=== PATIENT | male | born 1985 | race Caucasian/White ===

== ENCOUNTER 2017-05-20 15:17 | Observation (INO) ==
[2017-05-20] MEDS ORDERED: *HR* LORazepam 2 MG/ML VIAL IVP ONE (17:13)
[2017-05-20] MEDS ORDERED: Naloxone 0.4 MG/ML INJ IVP ONE (17:24)
[2017-05-20] MEDS ORDERED: Naloxone 0.4 MG/ML INJ ONE (17:25)
[2017-05-20 17:53] LABS: Basophils # 0.1 K/mcL (0.0-0.2); Basophils % 0.7 %; Eosinophils # 0.2 K/mcL (0.0-0.6); Eosinophils % 1.8 %; Hematocrit 44.7 % (37.5-50.1); Hemoglobin 14.4 g/dL (12.9-16.9); Immature Granulocytes % 0.2 % (0-4); Lymphocytes % 36.6 %; Mean Corpuscular HGB Conc 32.2 g/dL (31.6-35.5); Mean Corpuscular Hemoglobin 27.6 pg (28.0-33.3); Mean Corpuscular Volume 85.6 fL (83.0-100.0); Monocytes # 0.5 K/mcL (0.0-1.3); Monocytes % 6.5 %; Neutrophils # 4.4 K/mcL (1.6-8.9); Platelet Count 183 K/mcL (140-400); Red Blood Count 5.22 M/mcL (4.19-5.50); Red Cell Distribution Width 13.4 % (11.5-14.5); Segmented Neutrophils % 54.2 %
[2017-05-20 18:10] LABS: Alanine Aminotransferase 40 Units/L (7-52); Albumin 4.2 g/dL (3.5-5.7); Albumin/Globulin Ratio 1.3 (1.1-2.2); Alkaline Phosphatase 52 Units/L (34-104); Aspartate Amino Transferase 32 Units/L (13-39); BUN/Creatinine Ratio 19 (6-26); Bilirubin,Total 0.5 mg/dL (0.3-1.0); Blood Urea Nitrogen 14 mg/dL (6-20); Carbon Dioxide 26 mEq/L (23-29); Chloride 105 mEq/L (98-107); Globulin 3.3 g/dL (2.4-3.5); Glucose 80 mg/dL (70-105); Osmolality,Calculated 283 (280-300); Potassium 4.2 mEq/L (3.5-5.1); Sodium 137 mEq/L (136-145); Total Protein 7.5 g/dL (6.4-8.9); eGFR For African Americans > 60 (> 60); eGFR For Non-African Americans > 60 (> 60)
[2017-05-20 18:15] LABS: Ethanol < 10 mg/dL (0-10); Salicylate < 5.0 mg/dL (15.0-30.0)
--- NOTE | 2017-05-20 18:17 | Internal Med History&Physical ---
Date of Encounter: 05/20/17 Time of Encounter: 17:29 Assessment and Plan (1) Seizure-like activity Current visit: Yes Status: Acute Patient on zonisamide and Lyrica Tested positive for benzodiazepines. [facility]AR[facility] reviewed; patient had Valium was prescribed 07/31/2016 but no recent scripts since then. Will monitor for signs of withdrawal. EEG in AM - Resume Lyrica and zonisamide - Consult Neurology - stat CT head without contrast - CMP, CBC, - Ativan 1 mg Q2H prn breakthrough seizure - Neurochecks Q4H - EEG in AM (2) Alcohol intoxication Current visit: Yes Status: Acute [facility] had level of 11 mg/dL Patient is given IV fluid bolus Activity is not likely alcohol withdrawal given that he tested positive for alcohol. [facility] protocol Qualifiers: Complication of substance-induced condition: with unspecified complication Qualified Code(s): F10.929 - Alcohol use, unspecified with intoxication, unspecified (3) DVT prophylaxis Current visit: Yes Status: Acute Patient ambulates without issue. Low risk for DVT Internal Medicine - H&P: HPI History of present illness: History presents to the ED via EMS with report of two seizure that occurred at earlier today. States he felt dizzy and disoriented earlier when he was at a local restaurant. Law enforcement was called and they escorted home. Had brief aura with second seizure. Denies incontinence. Last seizure prior was 3 days. He had an aura before the first seizure that only a very brief aura before the second seizure happened. Diagnosed with temporal lobe epilepsy 7 years ago by previous neurologist, Dr. Navarrete. Has tried variety of antiseizure medications, currently on Lyrica and Zonegran. He was off these medications for proximally 3 months and just got started back on them month and a half ago. His new PCP, Rosa Marquis, who he has been seeing for the past month , is currently titrating up his doses. He currently takes 150 of Lyrica twice a day and 50 of zonisamide once daily. According to records he used to be on Lyrica 4 times a day and zonisamide twice a day when he was last seen here in February for seizures. States he has been compliant with his medications and took them today. He states he also has a prescription for Valium from his prior PCP, Dr. Hernandez. States he takes this occasionally when he feels a seizure is going to come on. States he last took it yesterday. He is also on Lexapro for depression and Suboxone currently for pain as well as losartan for hypertension. States he thinks he may have hit his head with his second seizure because his head is sore in the back. He feels slightly nauseous at this time. States his PCP is referring him to a new neurologist in [place] but he has not seen them yet. He admits to a remote history of drug abuse several years ago but denies any current use. At [facility] an EKG done showed no acute changes, normal sinus rhythm. Review of ED reports, patient told staff hes having an aura. reported to have recurrent seizures. CBC and BMP unremarkable. He received 6 mg of IV Ativan there prior to transfer here. Patient arrived to [facility], rapid response called for suspected seizure. Patient was rigid but communicating with staff as they were assisting and triaging him. He received 2 mg IV Ativan. He did not lose consciousness, no loss of continence. Patient was alert and oriented. Past Med Surg Social Fam HX - Past Medical History Medical history: hypertension, seizures, other Psychiatric history: ADHD, depression, PTSD, prior suicide attempt, previous psychiatric hospitalization - Past Surgical History Surgical History: other - Social History Smoking Status: Current every day smoker Smokeless Tobacco Status: No Alcohol use: none Drug use: none Internal Medicine - H&P: Meds Escitalopram [Lexapro] 10 mg PO DAILY 08/06/16 [History] Pregabalin [Lyrica] 150 mg PO QID 08/06/16 [History] Zonisamide [Zonegran] 50 mg PO DAILY 08/06/16 [History] Buprenorphine HCl [Subutex] 8 mg SL TID 02/05/17 [History] 3 Allergy/AdvReac Type Severity Reaction Status Date / Time No Known Allergies Allergy Verified 03/14/17 03:45 All Systems PM: A 10-system review of systems was performed and is negative for pertinent findings except as documented above in the HPI. - Constitutional Constitutional: no excessive sweating, no fatigue - EENT Eyes: no change in vision, no discharge, no pain, no photophobia Ears: no ear discharge, no ear pain, no tinnitus Nose, mouth and throat: no dysphagia, no nasal discharge, no neck pain, no sore throat - Cardiovascular Cardiovascular ROS IM: no chest pain, no diaphoresis, no dyspnea, no lightheadedness, no palpitations, no syncope - Respiratory Respiratory: no cough, no dyspnea, no wheezing, no excessive phlegm production - Gastrointestinal Gastrointestinal: nausea - Genitourinary Genitourinary ROS male: no urinary incontinence, no urinary urgency - Musculoskeletal Musculoskeletal ROS IM: limited range of motion, stiffness, no numbness, no tingling - Integumentary Integumentary IM: no rash, no unusual bruising - Neurological Neurological ROS: abnormal speech, convulsions, tremor(s), no abnormal hearing, no abnormal movements, no behavioral changes, no burning sensations, no confusion, no numbness, no radicular pain, no restless legs, no tingling, no vertigo - Psychiatric Psychiatric: as per HPI - Hematologic/Lymphatic Hematologic/Lymphatic: no easy bruising - Head Head exam: Present: atraumatic, normocephalic - Eye Eye exam: Present: PERRL, conjuntiva pink, sclera anicteric Pupils: Present: PERRL - Neck Neck exam general surgery: Present: supple, trachea midline. Absent: lymphadenopathy - Respiratory Respiratory exam: Present: CTAB. Absent: accessory muscle use, rales, rhonchi, wheezes - Cardiovascular Cardiovascular exam: Present: RRR, +S1, +S2. Absent: diastolic murmur, gallop, rubs, systolic murmur - GI/Abdominal GI/Abdominal exam: Present: normal bowel sounds, soft, no peritoneal signs. Absent: distended, tenderness - Extremities Exam Extremities exam: Present: warm, radial pulses palpable and symmetrical. Absent : calf tenderness, cyanotic, pedal edema - Neurological Exam Neurological exam: Present: CN II-XII intact, oriented X3, no focal deficits. Absent: pronater drift, facial droop, speech deficit - Skin Skin exam: Present: dry, intact Internal Med - H&P Results - Labs CBC & Chem 7: 05/20/17 17:48 05/20/17 17:48
[2017-05-20] MEDS ORDERED: Naloxone 0.4 MG/ML INJ IVP PRN (19:05)
[2017-05-20] MEDS ORDERED: Ibuprofen 400 MG TABLET PO PRN (19:05)
[2017-05-20] MEDS ORDERED: Thiamine (B-1) 100 MG in 0.9 % Sodium Chloride 50 ML IVPB STA (19:10)
[2017-05-20] MEDS ORDERED: Nicotine 7 MG PATCH.TD24 TD SCH (19:30)
[2017-05-20 20:28] LABS: Amphetamine Screen,Urine Negative ng/mL (Cutoff=1000); Barbiturate Screen,Urine Negative ng/mL (Cutoff=200); Benzodiazepines Screen,Urine Positive ng/mL (Cutoff=200); Cannabinoid Screen,Urine Negative ng/mL (Cutoff = 50); Cocaine Screen,Urine Negative ng/mL (Cutoff= 300); Opiate Screen,Urine Negative ng/mL (Cutoff=300); Phencyclidine Screen,Urine Negative ng/mL (Cutoff=25)
[2017-05-20] MEDS ORDERED: Pregabalin 75 MG CAPSULE PO SCH (22:00)
[2017-05-20] MEDS: *HR* LORazepam 2 MG/ML VIAL IVP PRN (22:14)
[2017-05-20 23:09] VITALS: BP 139/78
[2017-05-21 03:17] LABS: Basophils % 0.8 %; Eosinophils # 0.1 K/mcL (0.0-0.6); Hematocrit 37.5 % (37.5-50.1); Lymphocytes # 2.2 K/mcL (0.6-4.6); Lymphocytes % 43.8 %; Mean Corpuscular HGB Conc 32.8 g/dL (31.6-35.5); Mean Corpuscular Hemoglobin 27.3 pg (28.0-33.3); Mean Corpuscular Volume 83.1 fL (83.0-100.0); Mean Platelet Volume 9.7 fL (9.4-12.4); Monocytes # 0.4 K/mcL (0.0-1.3); Monocytes % 7.4 %; Neutrophils # 2.3 K/mcL (1.6-8.9); Platelet Count 174 K/mcL (140-400); Red Blood Count 4.51 M/mcL (4.19-5.50); Red Cell Distribution Width 13.3 % (11.5-14.5)
[2017-05-21] MEDS: *HR* LORazepam 2 MG/ML VIAL IVP PRN (03:29)
[2017-05-21 03:34] LABS: BUN/Creatinine Ratio 19 (6-26); Blood Urea Nitrogen 15 mg/dL (6-20); Carbon Dioxide 28 mEq/L (23-29); Chloride 106 mEq/L (98-107); Glucose 87 mg/dL (70-105); Osmolality,Calculated 288 (280-300); Sodium 139 mEq/L (136-145); eGFR For African Americans > 60 (> 60); eGFR For Non-African Americans > 60 (> 60)
[2017-05-21 03:43] LABS: Hemoglobin 12.3 g/dL (12.9-16.9)
[2017-05-21] MEDS ORDERED: *HR* Buprenorphine HCl 8 MG TAB.SUBL SL SCH (06:00)
[2017-05-21] MEDS ORDERED: Pregabalin 75 MG CAPSULE PO SCH (06:00)
--- NOTE | 2017-05-21 11:56 | Event Note ---
Date of Encounter: 05/21/17 Time of Encounter: 08:00 Pt signed out AMA prior to me to seeing him.
--- NOTE | 2017-05-21 14:55 | Event Note ---
Date of Encounter: 05/20/17 Time of Encounter: 17:00 Rapid response was called on 05/20/17 late in the afternoon Upon arriving at patients bedside, brief history revealed the patient had been having seizures. 2 mg of Ativan was given and seizure subsided; vital signs remained stable Suspect pseudoseizures but cannot be sure as patient does have an extensive psych history that includes inpatient psychiatric management Patient was monitored overnight
[2017-05-23 19:04] LABS: Amphetamines NEGATIVE ng/mL (Cutoff 30); Barbiturates NEGATIVE ng/mL (Cutoff 75); Cocaine NEGATIVE ng/mL (Cutoff 30); Methadone NEGATIVE ng/mL (Cutoff 40); Methamphetamines NEGATIVE ng/mL (Cutoff 30); Opiates NEGATIVE ng/mL (Cutoff 30); Phencyclidine NEGATIVE ng/mL (Cutoff 15)
[2017-05-24 07:37] LABS: Benzodiazepines POSITIVE ng/mL (Cutoff 75)
[2017-05-26 22:36] LABS: 7-aminoclonazepam Conf <5 ng/mL; Alpha-hydroxyalprazolam Conf <5 ng/mL; Alprazolam Confirmation <5 ng/mL; Chlordiazepoxide Conf <20 ng/mL; Clonazepam Conf <5 ng/mL; Oxazepam Confirmation <20 ng/mL
[2017-05-27 17:47] LABS: Norbuprenorphine 20.1 ng/mL
[2017-05-28 07:51] LABS: Diazepam Confirmation 921 ng/mL; Lorazepam Confirmation 49 ng/mL; Midazolam Confirmation 70 ng/mL; Nordiazepam Confirmation 355 ng/mL; Temazepam Confirmation 30 ng/mL
== END 2017-05-21 07:40 | disposition left against medical advice (07) ==
LOC: 3BNU
PROVIDERS: ADMIT Hospitalist; ATTEND Hospitalist